=== PATIENT | male | born 1960 | race Caucasian/White ===

== ENCOUNTER 2022-02-02 10:30 | Outpatient (RCR) | payer OTHER, SELFPAY | END 2022-10-25 23:59 | disposition home or self-care (01) | PROVIDERS: PCP Family Medicine; Visit Provider Family Medicine | DX: M54.2 Cervicalgia (principal); Z51.89 Encounter for other specified aftercare | CPT/HCPCS: 97012; 97110; 97162 ==

== ENCOUNTER 2024-05-11 06:55 | Outpatient (CLI) | payer MEDICARE, SELFPAY ==
--- NOTE | 2024-05-11 08:18 | P.ANES_ITS ---
Anesthesia Charges Start Date/Time Anesthesia Start Date: 05/11/24 Anesthesia Start Time: 08:00 Stop Date/Time Anesthesia Stop Date: 05/11/24 Anesthesia Stop Time: 08:18 Coding CPT Codes CPT Codes: ANES LWR INTST SCR COLSC - 51078 ([id number]) P3 - PATIENT W/SEVERE SYS DISEASE, QX - SOCK LINER SVC W/ MD MED DIRECTION, QK - BOX TENDER 2-4 CNCRNT ANES PROC
--- NOTE | 2024-05-11 08:18 | W.ANESCHARGE ---
Anesthesia Charges Start Date/Time Anesthesia Start Date: 05/11/24 Anesthesia Start Time: 08:00 Stop Date/Time Anesthesia Stop Date: 05/11/24 Anesthesia Stop Time: 08:18 Coding CPT Codes CPT Codes: ANES LWR INTST SCR COLSC - 31636 ([id number]) P3 - PATIENT W/SEVERE SYS DISEASE, QX - RELIGIOUS LEADER SVC W/ MD MED DIRECTION, QK - BRASS ROLLER 2-4 CNCRNT ANES PROC
--- NOTE | 2024-05-11 08:24 | P.ANES_ITS ---
Anesthesia Charges Start Date/Time Anesthesia Start Date: 05/11/24 Anesthesia Start Time: 08:00 Stop Date/Time Anesthesia Stop Date: 05/11/24 Anesthesia Stop Time: 08:18 Coding CPT Codes CPT Codes: ANES LWR INTST SCR COLSC - [id number] ([id number]) QK - PRESS BRAKE OPERATOR 2-4 CNCRNT ANES PROC, QX - SHIM PLUG CUTTER SVC W/ MED DIRECTION, P3 - PATIENT W/SEVERE SYS DISEASE
--- NOTE | 2024-05-11 08:24 | W.ANESCHARGE ---
Anesthesia Charges Start Date/Time Anesthesia Start Date: 05/11/24 Anesthesia Start Time: 08:00 Stop Date/Time Anesthesia Stop Date: 05/11/24 Anesthesia Stop Time: 08:18 Coding CPT Codes CPT Codes: ANES LWR INTST SCR COLSC - [id number] ([id number]) QK - ASSOCIATE PROFESSOR OF PATHOLOGY 2-4 CNCRNT ANES PROC, QX - WEB PRESS OPERATOR ASSISTANT SVC W/ MED DIRECTION, P3 - PATIENT W/SEVERE SYS DISEASE
== END 2024-05-11 06:56 | disposition home or self-care (01) ==
LOC: OP CLINIC 06:58
PROVIDERS: PCP Family Medicine; Visit Provider Internal Medicine
DX: Z12.11 Encounter for screening for malignant neoplasm of colon (principal)
CPT/HCPCS: 00812; 45378; J2704

== ENCOUNTER 2024-12-29 07:47 | Outpatient (CLI) | payer MEDICARE, SELFPAY ==
[2024-12-29] MEDS: REGADENOSON 0.4 MG/5 ML SYRINGE IVP (09:28)
[2024-12-29] MEDS: SODIUM CHLORIDE 0.9 % (FLUSH) 10 ML SYRINGE IVF (09:28)
[2024-12-29 09:41] VITALS: BP 127/81; PULSE 87; RESP 18
--- NOTE | 2024-12-29 11:55 | W.PM.STED ---
Stress Test Note Date Date of test: 12/29/24 Providers Primary care provider: Faheem Leigh Stress test physician: Fuentes Kang Stress Test Note Stress test ordered: Lexiscan Indication for test: Chest pain Stress test medicine: Lexiscan Results discussion: This very nice patient presents for the above test, after discussion the risks benefits and side effects of the test, patient would like to continue. Cardiac stress test medical history form is reviewed entirely. Pretest EKG shows normal sinus rhythm, with a ventricular rate of 61, blood pressure 128/[address] wave changes are noted. Standard Lexiscan walking protocol is done for duration of 5 minutes and achieved a metabolic equivalent of 1.6 Mets, with a maximum heart rate of 134 which is 100% of the maximum. He did develop some left-sided arm discomfort which she said was not abnormal for him with his disc issues in his neck. No other chest pain, shortness of breath, some mild nausea. Review of the tracing did not show any appreciable ST wave changes suggestive of ischemia, he did develop of mild sinus tachycardia. Impression: Negative electrographic portion of walking Lexiscan, subjectively negative Follow up suggested: Await nuclear medicine read, clinical correlation with this will be needed, patient recovered normally left this testing facility in good condition. There were no complications
== END 2024-12-29 11:30 | disposition home or self-care (01) ==
PROVIDERS: PCP Family Medicine; Visit Provider Student in an Organized Health Care Education/Training Program
DX: R07.89 Other chest pain (principal)
CPT/HCPCS: 78452; 93016; 93017; A9500; J2785